=== PATIENT | female | born 1990 | race Caucasian/White ===

== ENCOUNTER → 2018-08-12 12:35 | Outpatient (CLI) | payer OTHER, MEDICAID, SELFPAY ==
--- NOTE | 2018-08-12 | DI.US.S_ITS ---
PROCEDURE: US OB >= 14 WEEKS FETUS INDICATIONS: ANATOMY SCREEN OUTSIDE/PRIOR DATING DATA: Last menstrual period (LMP): 02/26/18. LMP-based estimated date of delivery (DES): 12/31/18. First dating scan (date and location): 06/21/18. Estimated date of delivery (DES) from first dating scan: 12/29/18. TECHNIQUE: Real-time scanning was performed of the fetus, with image documentation and biometric measurements. Endovaginal scanning: Not performed COMPARISON: [facility], US, US OB < 14 WEEKS + OB TRANSVAG, 06/21/2018, 10:21. FINDINGS: General: A single living intrauterine gestation is present. Presentation: Vertex. Placenta: Placental position is posterior, without previa. Amniotic fluid index: 12.6 cm, normal range is 5-24 cm. heart rate: 145 beats per minute. Maternal cervical canal: 3.1 cm long. Normal lower limit is 2.5 cm. biometrics: Biparietal diameter: 4.5 cm, 19 weeks 3 days Head circumference: 17.0 cm, 19 weeks 4 days Abdominal circumference: 15.1 cm, 20 weeks 2 days Femur length: 3.2 cm, 20 weeks zero days Estimated gestational age from initial scan: 20 weeks one day. Composite gestational age from present scan: 20 weeks one day Estimated weight and percentile: 43rd percentile, 332 g Measurement variability for biometric dating: +/- 7 days from 14 weeks to 15 weeks 6 days gestation, +/- 10 days from 16 weeks to 21 weeks 6 days gestation, +/- 2 weeks from 22 weeks to 27 weeks 6 days gestation, +/- 3 weeks for 28 weeks gestation or later. weight reference: 4500 g or EFW >90/95% is considered macrosomia or large for gestational age. EFW <10% is small for gestational age. EFW 5% or less is considered intra-uterine growth restriction. Anatomic survey: Neuro: Ventricles are non-dilated at less than 10 mm. Cisterna magna is normal at 3-11 mm. Cerebellum is normal in size and morphology. Nuchal skin fold: Normal at less than 6 mm between 14-21 weeks gestational age. Face: Facial structures not well-seen due to gestational I. Spine: No evidence for spina bifida. Heart: 4-chambered heart is present, with normal ventricular outflow tracts. Diaphragm: Diaphragm is intact. Stomach: Left-sided stomach is present. Kidneys: No hydronephrosis. Normal is less than 5 mm in 2nd trimester, less than 7 mm in 3rd trimester. Cord: 3-vessel cord has orthotopic insertion. Bladder: Normal in size. Extremities: All 4 extremities identified. Possible club foot appearance of the left lower extremity. However, limited evaluation due to motion and position. IMPRESSION: Single living intrauterine fetus in vertex presentation demonstrating expected interval growth. facial structures not well-seen due to gestational lie. Recommend followup. Possible clubfoot deformity of the left lower extremity however limited evaluation due to uncontrollable motion. Recommend close attention to this area on the above recommended followup examination. Dictated by: Percy Ren M.D. on 08/12/2018 at 16:58 Approved by: Percy Ren M.D. on 08/12/2018 at 17:04
== END ==
PROVIDERS: PCP Family Medicine; Visit Provider Family Medicine
DX: Z36.89 Encounter for other specified antenatal screening (principal); Z3A.20 20 weeks gestation of pregnancy
CPT/HCPCS: 76811

== ENCOUNTER → 2018-09-27 10:34 | Outpatient (CLI) | payer OTHER, MEDICAID, SELFPAY ==
--- NOTE | 2018-09-27 | DI.US.S_ITS ---
PROCEDURE: US OB FOLLOW UP INDICATIONS: FOLLOW UP FACIAL OUTSIDE/PRIOR DATING DATA: Last menstrual period (LMP): 02/26/18. LMP-based estimated date of delivery (DES): 12/31/18. First dating scan (date and location): 06/21/18. Estimated date of delivery (DES) from first dating scan: 12/29/18. TECHNIQUE: Real-time scanning was performed of the fetus, with image documentation. COMPARISON: [facility], OB >= 14 WEEKS FETUS, 08/12/2018, 13:08. [facility], PELVIC COMPLETE, 09/03/2017, 7:41. FINDINGS: A single living intrauterine gestation is present. Presentation: Vertex. Placenta: Placental position is posterior, without previa. Amniotic fluid index: 11.7 cm, normal range is 5-24 cm. heart rate: 137 beats per minute. Maternal cervical canal: 4.3 cm long. Normal lower limit is 2.5 cm. Estimated gestational age from initial scan: 26 weeks 5 days. Nose and lips appear to be within normal limits. Facial profile remained unable to be adequately evaluated. It is noted at the appearance of bilateral lower extremities appears abnormal. IMPRESSION: 1. As identified on prior exam, lower extremities have an appearance of clubfoot deformity. Appearance has not significantly changed compared to prior exam. Additional clinical and imaging followup is recommended, including laboratory testing as indicated. 2. Facial profile remained unable to be adequately evaluated. Dictated by: Sandra Prater M.D. on 09/27/2018 at 16:34 Approved by: Sandra Prater M.D. on 09/27/2018 at 16:39
== END ==
PROVIDERS: PCP Family Medicine; Visit Provider Family Medicine
DX: Z36.89 Encounter for other specified antenatal screening (principal); Z3A.26 26 weeks gestation of pregnancy
CPT/HCPCS: 76816

== ENCOUNTER → 2018-11-29 11:20 | Outpatient (REF) | payer OTHER, MEDICAID, SELFPAY | LOC: LAB 11:20 | PROVIDERS: PCP Family Medicine; Visit Provider Family Medicine | DX: Z34.80 Encounter for supervision of other normal pregnancy, unspecified trimester (principal) | CPT/HCPCS: 87081 ==

== ENCOUNTER 2018-12-22 05:31 | Inpatient (IN) | payer OTHER, MEDICAID, SELFPAY ==
[2018-12-22] MEDS: LACTATED RINGERS 1,000 ML 999 ML IV (06:00)
[2018-12-22] MEDS: LACTATED RINGERS 1,000 ML 100 ML IV (06:54)
[2018-12-22 07:14] LABS: Add Manual Diff / Slide Review NO; Basophils Absolute Auto 0 /uL (0-100); Basophils Percent Auto 0.4 % (0-2); Eosinophils Absolute Auto 100 /uL (0-450); Eosinophils Percent Auto 1.3 % (2-4); Hematocrit 34.4 % (36-46); Hemoglobin 12.1 g/dL (12.0-16.0); Lymphocytes Absolute Auto 3000 /uL (1100-4500); Mean Corpuscular HGB Conc 35.1 % (30-36); Mean Corpuscular Hemoglobin 31.6 PG (26-34); Monocytes Absolute Auto 600 /uL (0-900); Monocytes Percent Auto 5.9 % (3-14); Neutrophils Absolute Auto 5700 /uL (1500-7000); Neutrophils Percent Auto 60.4 % (50-75); Platelet Count 178 X10^3/uL (150-400); Red Blood Cell Count 3.82 X10^6/uL (4.0-5.2); Red Cell Distribution Width 16.8 % (11.6-14.8); White Blood Cell Count 9.5 X10^3/uL (4.5-11.0)
--- NOTE | 2018-12-22 07:40 | PM.OBHP.1 ---
OB HPI Date/Time Date of admission: 12/22/18 Date Patient Seen: 12/22/18 Time Patient Seen: 07:41 History of Present Condition Chief complaint: scheduled c section : 4 Para: 2 Estimated Date of Delivery: 11/29/19 Estimated Gestational Age (weeks): 39 Narrative: Charlene Milligan is a 28 year old female previous and then the back here for repeat section. Patient with uncomplicated . Feeling well. No previous health issues. Previous went well. Past medical history is nonsignificant. Past surgical history other than is nonsignificant. Past OB 6 years ago for distress, the back without complications. Medications vitamins. labs O positive antibody screen negative rubella immune VDRL negative cystic fibrosis not done hepatitis B nonreactive hematocrit unremarkable cultures negative Pap smear was normal 1 hour was 118 Has got tetanus Socially lives with and children Indications Operative indications ( section): previous uterine surgery History of Present care: good care Dating criteria: LMP confirmed by 1st trimester US Ultrasounds: normal mid trimester US Medical complications: none Preadmission Labs Blood type: O (+) positive -: Antibody screen: negative, Cystic fibrosis screen: negative, GBS status: negative, HBsAG: negative, HIV: negative, HSV 1: negative, HSV 2: negative and RPR/VDLR: negative -: Chlamydia screen: not detected and Gonorrhea screen: not detected -: Rubella: unknown and Varicella: unknown HCAB: negative Evaluation Evaluation Laboratory results: Laboratory Tests 12/22/18 06:10 WBC 9.5 RBC 3.82 L Hgb 12.1 Hct 34.4 L MCV 90.0 MCH 31.6 MCHC 35.1 RDW 16.8 H Plt Count 178 Neut % (Auto) 60.4 Lymph % (Auto) 32.0 [place] % (Auto) 5.9 Eos % (Auto) 1.3 L Baso % (Auto) 0.4 Neut # (Auto) 5700 Lymph # (Auto) 3000 [place] # (Auto) 600 Eos # (Auto) 100 Baso # (Auto) 0 Meds Home Medications Medication Instructions Recorded Confirmed Type 1 tab PO DAILY 12/22/18 12/22/18 History ascorbic acid (vitamin C) 500 mg PO DAILY 12/22/18 12/22/18 History ferrous sulfate 325 mg PO DAILY 12/22/18 12/22/18 History Allergies Allergy/AdvReac Type Severity Reaction Status Date / Time kiwi Allergy Mild ITCHING Unverified 11/04/17 12:59 diphenhydramine AdvReac Intermediate Irritable Verified 12/22/18 06:59 [From Benadryl] Review of Systems Review of Systems All systems reviewed & are unremarkable except as noted in HPI and below Exam Vital Signs (past 8 hours): Alert female no acute distress. Lungs are clear. Heart regular rate and rhythm. Abdomen is gravid vertex by Flaco's. Previous scar clearly identified. Extremities without cyanosis clubbing edema. heart monitor Objective Labs Result Diagrams: 12/22/18 06:10 Labs: Laboratory Results - last 24 hr 12/22/18 06:10 WBC 9.5 RBC 3.82 L Hgb 12.1 Hct 34.4 L MCV 90.0 MCH 31.6 MCHC 35.1 RDW 16.8 H Plt Count 178 Neut % (Auto) 60.4 Lymph % (Auto) 32.0 [place] % (Auto) 5.9 Eos % (Auto) 1.3 L Baso % (Auto) 0.4 Neut # (Auto) 5700 Lymph # (Auto) 3000 [place] # (Auto) 600 Eos # (Auto) 100 Baso # (Auto) 0 Assessment and Plan Assessment and Plan Assessment and Plan narrative: Thirty-nine week intrauterine requesting repeat section will proceed. Usually occasion. Questions answered consent signed.
--- NOTE | 2018-12-22 09:30 | P.OP_ITS ---
Operative Date/Time/Diagnoses Date of procedure: 12/22/18 Time of procedure: 09:21 Pre-op diagnosis: Previous section, 39 week intrauterine desires repeat section Post-op diagnosis: same Procedure & Clinicians Procedure: Secondary low transverse section Same procedure as scheduled: Yes Indications: Term intrauterine with history of previous section requesting repeat Surgeon: Sidney Gillespie Professor Of Literacy: Renata Collins Click Yes if Unassisted: No Anesthesia Type: Spinal Operative Notes Findings: Viable female question in turning legs possible clubfeet. Apgars 9 and 9 weight not available. Normal pelvic organs. Adhered placenta. With difficulty removing amniotic membranes. Increased bleeding inside the uterus. Closure Type: primary Specimen(s): none sent Applied: catheter Estimated Blood Loss (mL): 500 Blood products transfused: none Procedure in detail: Patient was read discussed consent she agrees consent had been previously signed. She was wheelchair to the operative theater and placed on the operative table spinal was placed by anesthesiologist. No complications. Excellent results. She was placed in the plummer supine position prepped and draped in the usual manner. A Pfannenstiel incision was made through previous scar. Moderate amount of scar in the subcutaneous tissue. Sharp dissection down to the fascia. Due to the amount of scar incision was made with scalpel through the fascia. The fascia was then elevated without much complications using Crystal hers and midline was sharply dissected with curved mayos. This was repeated inferior without complications. Small bleeder on the left side of the muscle layer which was cauterized. Midline was then entered with blunt dissection through the peritoneum the superior aspect of the incision. Blunt dissection was used to extend it under direct visualization. Bladder blade was placed. Bladder flap was then created with Metzenbaums in usual manner. Bl untly dissected off the uterus. Bladder blade was placed and bladder flap. A low transverse incision was then created on the uterine midline scored and then Center was sharply dissected until amniotic membranes were noted. It was bluntly dissected. Amniotic membranes were then ruptured with clear fluid. Child was then attempted to be delivered vertex unable to do so vacuum was placed and easily delivered. No nuchal cord. Cord was clamped and cut and handed off to the waiting nurse. A knot was found to be in the cord. Placenta was then removed and found to be very difficult to get moderate amount of the amniotic membranes out. We then started to notice significant bleeding in the inside of the uterus along the open surface packing was then undertaken. Attempted to get all the membranes out. Was difficult. But eventually they were all removed. We did call Dr. Patel in to make sure everything was fine but by the time she got there it was done bleeding in all membranes were removed. Wet lap sponge was then used twice to make sure was completely resolved. Uterus was firm. The inferior aspect of the uterine incision was then identified and grasped along with the 2 corners of the uterine incision uterine incision was then closed with running 0 chromic in a locked manner. No bleeding. Second imbricating stitch 0 chromic running suture non locked was then done. Irrig ation was done and wound was reassessed found not to be bleeding. Bladder flap was then closed with running 3 0 Vicryl. Peritoneum was then closed with running 2 0 Vicryl. Muscle layer was approximated with 220 Vicryl interrupted sutures. Fascia was then closed with running 1 Vicryl. Irrigation was done is subcutaneous tissue. No bleeding was noted. 330 Vicryl interrupted sutures were used to approximate the wound edges. Wound was closed with running 4 0 Vicryl subcuticular. Steri-Strips and dressing was applied. All sponge instrument and needle counts were correct. EBL 500 cc. Mother and infant stable condition. Complications: none Condition: stable Disposition: PACU Plan for aftercare: Routine care transferred to labor and delivery when stable
[2018-12-22 10:39] VITALS: BP 102/69
[2018-12-22] MEDS: DEXTROSE 5%-LACTATED RINGERS 1,000 ML 125 ML IV (10:48)
[2018-12-22] MEDS: METOCLOPRAMIDE 10 MG/2 ML INJ IV ×2 (11:16→20:22)
[2018-12-22] MEDS: KETOROLAC 30 MG/ML VIAL IV ×2 (14:54→20:56)
[2018-12-22] MEDS: LACTATED RINGERS 1,000 ML 1000 ML IV (19:15)
[2018-12-22] MEDS: ONDANSETRON 4 MG/2 ML INJ IV (20:13)
[2018-12-23] MEDS: DEXTROSE 5%-LACTATED RINGERS 1,000 ML 250 ML IV (00:21)
[2018-12-23] MEDS: KETOROLAC 30 MG/ML VIAL IV (03:11)
[2018-12-23] MEDS: LACTATED RINGERS 1,000 ML 100 ML IV (04:22)
[2018-12-23 06:03] LABS: Add Manual Diff / Slide Review NO; Basophils Absolute Auto 0 /uL (0-100); Basophils Percent Auto 0.2 % (0-2); Eosinophils Absolute Auto 0 /uL (0-450); Eosinophils Percent Auto 0.4 % (2-4); Hematocrit 25.8 % (36-46); Hemoglobin 8.8 g/dL (12.0-16.0); Lymphocytes Absolute Auto 1800 /uL (1100-4500); Lymphocytes Percent Auto 17.8 % (25-40); Mean Corpuscular HGB Conc 33.9 % (30-36); Mean Corpuscular Hemoglobin 30.9 PG (26-34); Mean Corpuscular Volume 91.3 fL (80-100); Monocytes Absolute Auto 700 /uL (0-900); Monocytes Percent Auto 6.9 % (3-14); Neutrophils Absolute Auto 7500 /uL (1500-7000); Neutrophils Percent Auto 74.7 % (50-75); Platelet Count 139 X10^3/uL (150-400); Red Blood Cell Count 2.83 X10^6/uL (4.0-5.2); Red Cell Distribution Width 16.9 % (11.6-14.8); White Blood Cell Count 10.1 X10^3/uL (4.5-11.0)
--- NOTE | 2018-12-23 08:15 | PM.OBPN.1 ---
Subjective - OB Patient comments: pain well controlled baby status: doing well [place] feeding status: exclusively breast feeding Date Patient Seen: 12/23/18 Time Patient Seen: 08:16 Interval history: Patient actually feeling pretty well today. Have Mchugh discontinued this morning. She has been up moving around and that has been going well. Pain is well controlled. Minimal bleeding. Got a bolus for fluids last night and is doing better today. No other changes. Exam Vital Signs (past 8 hours): Alert female smiling interactive in no acute distress. Lungs are clear heart regular rate and rhythm. Abdomen uterus is firm at umbilicus. Incision is got small amounts of bleeding but no change from last night. Seems to be stable. Extremities without cyanosis clubbing edema. No calf pain. Objective Labs Result Diagrams: 12/23/18 05:49 Labs: Laboratory Results - last 24 hr 12/22/18 12/23/18 06:10 05:49 WBC 10.1 RBC 2.83 L Hgb 8.8 L Hct 25.8 L MCV 91.3 MCH 30.9 MCHC 33.9 RDW 16.9 H Plt Count 139 L Neut % (Auto) 74.7 Lymph % (Auto) 17.8 L [place] % (Auto) 6.9 Eos % (Auto) 0.4 L Baso % (Auto) 0.2 Neut # (Auto) 7500 H Lymph # (Auto) 1800 [place] # (Auto) 700 Eos # (Auto) 0 Baso # (Auto) 0 Antibody Screen Negative Assessment & Plan Plan plan OB: routine care Comments: Postop day 1 doing extremely well. His routine care. Expect discharge tomorrow. Will continue with breast feeding support Time Spent With Patient Total time spent is greater than 50% in coordination of care (as documented) at patient's floor/unit and/or counseling patient: less than 15 minutes
[2018-12-23] MEDS: IBUPROFEN 600 MG TABLET PO ×3 (09:46→22:22)
[2018-12-23] MEDS: PRENATAL VIT,CALC/IRON/FOLIC 1 TABLET 1 TAB PO (09:47)
[2018-12-23] MEDS: DOCUSATE 250 MG CAPSULE PO (09:47)
[2018-12-23] MEDS: OXYCODONE/ACETAMINOPHEN 5/325 TABLET 1 TAB PO ×3 (11:49→22:22)
[2018-12-24] MEDS: PRENATAL VIT,CALC/IRON/FOLIC 1 TABLET 1 TAB PO (08:05)
[2018-12-24] MEDS: IBUPROFEN 600 MG TABLET PO (08:05)
[2018-12-24] MEDS: OXYCODONE/ACETAMINOPHEN 5/325 TABLET 1 TAB PO ×2 (08:06→12:46)
[2018-12-24] MEDS: DOCUSATE 250 MG CAPSULE PO (08:08)
--- NOTE | 2018-12-24 08:25 | P.DS_ITS ---
History of Present Illness Chief complaint: 24314 Discharge Providers Date of admission: 12/22/18 05:31 Discharge Date: 12/24/18 Primary care physician: Renata Collins MD Consults: 12/22/18 10:38 Consult to Java Lead Architect Routine Comment: Discharge provider: Renata Collins MD Summary Discharge Diagnosis: day 2 status post repeat elective section at term No complications Hospital Course: Had adherent amniotic membranes at delivery was given Pitocin and Methergine but did not have any significant bleeding . Unremarkable course. Unremarkable postoperative course. Patient was discharged home on day 2. In stable condition with routine precautions and discharge medications including vitamins, Motrin as needed, Percocet as needed, Colace daily. Status at Discharge Cognitive/behavioral status at discharge: oriented Functional status at discharge: independent ambulation Overall status at discharge: patient is progressing back to baseline Time Spent with Patient Greater than 30 minutes Objective Labs Result Diagrams: 12/23/18 05:49 Discharge Plan Discharge Plan Patient Disposition: Home Discharge Med Rec/Prescriptions Prescriptions: New oxycodone-acetaminophen 5-325 mg Tablet 1 tab PO Q4HR PRN (Reason: Pain, Moderate (4-6)) Qty: 30 RF: 0 ibuprofen 600 mg Tablet 600 mg PO Q6HR PRN (Reason: As Needed For Fever/Mild Pain) Qty: 60 RF: 0 docusate sodium 250 mg Capsule 250 mg PO DAILY Qty: 30 RF: 0 Prenatabs Rx 29 mg iron- 1 mg Tablet 1 tab PO DAILY Qty: 30 RF: 0 Continued 1 tab tablet 1 tab PO DAILY RF: 0 ascorbic acid (vitamin C) 1 tab tablet 500 mg PO DAILY RF: 0 ferrous sulfate 1 tab tablet 325 mg PO DAILY RF: 0 Follow up/Referrals: Renata Collins MD [Primary Care Provider] - Provider Discharge Instructions Diet: Diet as Tolerated Activity: pelvic rest no heavy lifting Skin/Wound/Dressing Care Report to your healthcare provider any signs of infection, such as:: chills, fever, night sweats, increased pain and unusual drainage Dressing: keep wound clean and dry Discharge Data Primary Care Provider: Renata Collins Attending Provider: Sidney Gillespie Admit Date/Time: 12/22/18 05:31
[2018-12-24 10:59] VITALS: BP 116/73; PULSE 92; RESP 16; TEMP 36.8
== END 2018-12-24 13:10 | disposition home or self-care (01) | DRG 540 ==
PROVIDERS: Admitting Provider Family Medicine; PCP Family Medicine; Visit Provider Family Medicine
DX: O34.219 Maternal care for unspecified type scar from previous cesarean delivery (principal); Z3A.39 39 weeks gestation of pregnancy; Z37.0 Single live birth
CPT/HCPCS: 36415; 59050; 85025; 86850; 86900; 86901; G0379; J1885; J2210; J2274; J2405; J2590; J2765; J7121